=== PATIENT | male | born 1945 | race Caucasian/White ===

== ENCOUNTER → 2017-11-29 13:41 | Outpatient (CLI) | payer SELFPAY ==
--- NOTE | 2017-11-29 | DI.RAD.S_ITS ---
PROCEDURE: XR CHEST 2V INDICATIONS: COUGH,FEVER TECHNIQUE: 2 views of the chest were acquired. COMPARISON: None available. FINDINGS: Surgical changes and devices: There is a right internal jugular Port-A-Cath with the tip extending to the cavoatrial junction. Lungs and pleura: There are patchy bilateral air space opacities which appear to involve all lobes. There is a small left pleural effusion. No pneumothorax. Mediastinum: Mediastinal contours are normal. Heart size is enlarged. Bones and chest wall: No suspicious bony abnormalities. Soft tissues appear unremarkable. IMPRESSION: 1. Bilateral patchy airspace opacities suggestive of multifocal pneumonia given clinical history. Consider further evaluation with CT if clinically indicated. 2. Small left pleural effusion. Dictated by: Geovanni August M.D. on 11/29/2017 at 16:27 Approved by: Geovanni August M.D. on 11/29/2017 at 16:32
== END ==
PROVIDERS: Family Provider Internal Medicine; PCP Internal Medicine; Visit Provider Internal Medicine
DX: R05 Cough (principal); R50.9 Fever, unspecified; R91.8 Other nonspecific abnormal finding of lung field; J90 Pleural effusion, not elsewhere classified
CPT/HCPCS: 71046; 80048; 85025

== ENCOUNTER → 2017-11-29 16:38 | Outpatient (REF) | payer MEDICARE, OTHER, SELFPAY ==
[2017-11-29 16:48] LABS: Add Manual Diff / Slide Review NO; Basophils Percent Auto 0.2 % (0-2); Eosinophils Percent Auto 0.7 % (2-4); Hematocrit 30.9 % (41-53); Hemoglobin 10.1 g/dL (13.5-17.5); Lymphocytes Percent Auto 3.2 % (25-40); Mean Corpuscular HGB Conc 32.6 % (30-36); Mean Corpuscular Hemoglobin 26.2 PG (26-34); Mean Corpuscular Volume 80.3 fL (80-100); Monocytes Percent Auto 5.8 % (3-14); Neutrophils Absolute Auto 11100 /uL (3000-5900); Neutrophils Percent Auto 90.1 % (50-75); Platelet Count 286 X10^3/uL (150-400); Red Blood Cell Count 3.85 X10^6/uL (4.5-5.9); Red Cell Distribution Width 18.6 % (11.6-14.8); White Blood Cell Count 12.3 X10^3/uL (4.5-11.0)
[2017-11-29 16:49] LABS: BUN Creatinine Ratio 38.3 (6-22); Blood Urea Nitrogen 23 mg/dL (9-20); Calcium 8.9 mg/dL (8.4-10.2); Carbon Dioxide 25 mmol/L (22-32); Chloride 99 mmol/L (98-107); Estimated Glomerular Filt Rate > 60.0 mL/min (>60); Glucose 126 mg/dL (80-110); HEMOLYSIS < 15 (0-50); Potassium 3.9 mmol/L (3.4-5.1); Sodium 136 mmol/L (137-145)
== END ==
LOC: LAB 16:38
PROVIDERS: Family Provider Internal Medicine; PCP Internal Medicine; Visit Provider Internal Medicine
CPT/HCPCS: 80048; 85025

== ENCOUNTER → 2017-12-04 16:29 | Outpatient (REF) | payer MEDICARE, OTHER, SELFPAY ==
[2017-12-04 16:51] LABS: BUN Creatinine Ratio 25.7 (6-22); Blood Urea Nitrogen 18 mg/dL (9-20); Carbon Dioxide 30 mmol/L (22-32); Chloride 98 mmol/L (98-107); Estimated Glomerular Filt Rate > 60.0 mL/min (>60); Glucose 116 mg/dL (80-110); HEMOLYSIS < 15 (0-50); Potassium 3.8 mmol/L (3.4-5.1); Sodium 136 mmol/L (137-145)
[2017-12-04 17:51] LABS: Add Manual Diff / Slide Review NO; Basophils Percent Auto 0.3 % (0-2); Eosinophils Percent Auto 0.5 % (2-4); Hematocrit 29.8 % (41-53); Hemoglobin 9.7 g/dL (13.5-17.5); Lymphocytes Percent Auto 3.3 % (25-40); Mean Corpuscular HGB Conc 32.7 % (30-36); Mean Corpuscular Hemoglobin 26.1 PG (26-34); Mean Corpuscular Volume 79.9 fL (80-100); Monocytes Percent Auto 5.6 % (3-14); Neutrophils Absolute Auto 12400 /uL (3000-5900); Neutrophils Percent Auto 90.3 % (50-75); Platelet Count 236 X10^3/uL (150-400); Red Blood Cell Count 3.73 X10^6/uL (4.5-5.9); Red Cell Distribution Width 18.3 % (11.6-14.8); White Blood Cell Count 13.8 X10^3/uL (4.5-11.0)
== END ==
LOC: LAB 16:29
PROVIDERS: Family Provider Internal Medicine; PCP Internal Medicine; Visit Provider Internal Medicine
DX: R50.9 Fever, unspecified (principal); R05 Cough
CPT/HCPCS: 80048; 85025

== ENCOUNTER 2017-12-05 16:07 | Emergency (ER) | payer MEDICARE, OTHER, SELFPAY ==
[2017-12-05 16:12] VITALS: BP 107/61; PULSE 81; RESP 20; TEMP 36.9; O2SAT 94
--- NOTE | 2017-12-05 16:16 | DI.RAD.S_ITS ---
PROCEDURE: XR CHEST 1V INDICATIONS: fatigue, hypoxia TECHNIQUE: One view of the chest was acquired. COMPARISON: [facility], CR, XR CHEST 2V, 11/29/2017, 13:38. FINDINGS: Surgical changes and devices: Right Port-A-Cath is unchanged. Lungs and pleura: There is improved aeration of the lungs when compared with the study dated 11/29/17; however diffuse bilateral pulmonary opacities persist. Mediastinum: Mediastinal contours appear normal. Heart size is normal. Bones and chest wall: No suspicious bony lesions. Overlying soft tissues appear unremarkable. IMPRESSION: Partially improved aeration of the bilateral lungs when compared with the prior study dated 11/29/17. Dictated by: Gloria Vivar M.D. on 12/05/2017 at 17:01 Approved by: Gloria Vivar M.D. on 12/05/2017 at 17:02
[2017-12-05 17:03] VITALS: BP 107/63; PULSE 80; RESP 15; O2SAT 92
--- NOTE | 2017-12-05 17:19 | DI.CT.S_ITS ---
PROCEDURE: CT ANGIO CHEST PE PROTOCOL INDICATIONS: sob w/ active CA - PE? PNA? TECHNIQUE: After the administration of intravenous contrast, 2 mm thick sections acquired from the pulmonary apices to the posterior costophrenic angles. 3-dimensional maximum intensity projection (MIP) coronal and sagittal reformats were then acquired through the thorax. For radiation dose reduction, the following was used: automated exposure control, adjustment of mA and/or kV according to patient size. COMPARISON: [facility], CR, XR CHEST 1V, 12/05/2017, 16:29. FINDINGS: Image quality: Excellent. Pulmonary arteries: Segmental and subsegmental filling defects are present bilaterally within the lower lobes and the right middle lobe. Lungs and pleura: Geographic, groundglass pulmonary opacities and interlobular septal thickening are present throughout both lungs. Tree in bud pulmonary radiopacities are also present within the lower lobes bilaterally. A 9 mm diameter spiculated nodule is present within the left lower lobe (series 5, image 27). A 5 mm pulmonary nodule is present more inferiorly within the left lower lobe (series 5, image 36). A 12 mm nodule is present at the right lung base (series 5, image 40). Mediastinum: Heart size is normal, without pericardial effusion. No leftward septal bowing to suggest right heart strain. No mediastinal or hilar adenopathy. Thoracic aorta is normal in caliber and enhancement. There is likely an esophageal pull-through. This has an ectatic appearance and is filled with debris. Bones and chest wall: No suspicious bony lesions. Ribs and thoracic spine appear intact throughout. Thyroid gland is unremarkable. No axillary or supraclavicular adenopathy. Abdomen: There is a 5.4 x 3.6 cm enhancing right adrenal gland mass. There is a 1.4 cm diameter left adrenal gland mass. Visualized upper abdominal solid organs appear otherwise normal in the early arterial phase of enhancement. IMPRESSION: 1. Nonocclusive segmental and subsegmental pulmonary emboli as above. No findings to suggest right heart strain. 2. Geographic groundglass opacities suspicious for infection, likely secondary to aspiration given the markedly dilated, debris-filled lucio-esophagus. 3. Bilateral basilar tree in bud radiopacities suggesting endobronchial spread of infection. 4. Multiple spiculated pulmonary nodules suspicious for pulmonary metastasis. 5. 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 These findings were discussed with Dr. Valle at 6:06 PM on 12/05/17. Dictated by: Gloria Vivar M.D. on 12/05/2017 at 17:58 Approved by: Gloria Vivar M.D. on 12/05/2017 at 18:07
[2017-12-05 17:30] LABS: Add Manual Diff / Slide Review NO; Basophils Percent Auto 0.2 % (0-2); Eosinophils Percent Auto 0.7 % (2-4); Hematocrit 30.6 % (41-53); Lymphocytes Percent Auto 2.7 % (25-40); Mean Corpuscular HGB Conc 32.7 % (30-36); Mean Corpuscular Hemoglobin 25.9 PG (26-34); Mean Corpuscular Volume 79.4 fL (80-100); Monocytes Percent Auto 4.5 % (3-14); Neutrophils Absolute Auto 10800 /uL (3000-5900); Neutrophils Percent Auto 91.9 % (50-75); Platelet Count 246 X10^3/uL (150-400); Red Blood Cell Count 3.86 X10^6/uL (4.5-5.9); Red Cell Distribution Width 18.6 % (11.6-14.8); White Blood Cell Count 11.7 X10^3/uL (4.5-11.0)
[2017-12-05 17:36] LABS: Alanine Aminotransferase 33 IU/L (21-72); Albumin Globulin Ratio 0.7 (1.0-2.8); Alkaline Phosphatase 121 U/L (38-126); Aspartate Aminotransferase 30 IU/L (17-59); BUN Creatinine Ratio 31.7 (6-22); Bilirubin Total 0.7 mg/dL (0.2-1.3); Blood Urea Nitrogen 19 mg/dL (9-20); Calcium 9.1 mg/dL (8.4-10.2); Carbon Dioxide 29 mmol/L (22-32); Chloride 96 mmol/L (98-107); Estimated Glomerular Filt Rate > 60.0 mL/min (>60); Globulin 4.4 g/dL (1.7-4.1); Glucose 150 mg/dL (80-110); HEMOLYSIS < 15 (0-50); Lipase 33 U/L (23-300); Potassium 4.3 mmol/L (3.4-5.1); Sodium 135 mmol/L (137-145); Total Protein 7.4 g/dL (6.3-8.2)
--- NOTE | 2017-12-05 17:47 | ED.SOB ---
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 Patient denies fevers, chills, chest pain. Patient is nearing palliative care, DNR, but wishes to receive treatment and appraisal current condition the intention for discharge from the emergency department as the patient would rather be at home. M/S/F/SocHx notable for: please see HPI; remainder reviewed with patient and in chart. ROS: Negative constitutional, eye, cardiovascular, pulmonary, GI, , MSK, skin, neurologic, psychiatric, endocrine unless noted in the HPI. Exam Gen: Pleasant, resting in minimal discomfort, not in extremis, chronically unwell appearing. HEENT: NC, AT, PEERL, EOMI. Resp: mildly diminished breath sounds bilaterally, normal work of breathing, no accessory muscle usage. Card: Regular rate and rhythm with no murmurs, rubs, or gallops, extremities warm and well perfused. GI: Non-tender to palpation throughout all quadrants, no focal tenderness at McBurney's point, negative Alford's sign, non-distended, no rebound or guarding. : No suprapubic tenderness to palpation. MSK: No visible deformities, strength and tone without visually appreciable deficit. Skin: Normal color with no visible lesions. Neuro: AO x 3, no facial asymmetry, vision and hearing WNL. Psych: Mood and affect appropriate. Labs / Imaging: WBC 11.7, hemoglobin 10.0, sodium 135, potassium 4.3, troponin pending, BNP pending, Procalcitonin pending, TSH pending, free T4 pending. CXR: partially improved duration of the bilateral lungs when compared with prior study dated 11/29/17. CTA chest: pending. MDM Previous chart, nursing note, labs, imaging, and vitals reviewed. 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 DDx: weakness secondary to progress of malignancy, ACS, pericardial effusion, pleural effusion, PE, pneumonia, chemical pneumonitis, dehydration, CHF, electrolyte abnormalities. Evaluation: patient unwell but not in extremis and oxygenating adequately with a normal work of breathing on room air. CBC and BMP without grossly significant abnormalities. At the time of patient care transfer to the overnight provider the patient's BNP, troponin, Procalcitonin, thyroid studies, and CTA are pending. As the patient is high risk for PE a CTA chest was ordered, should the patient have a pulmonary embolism there will be significant clinical tension between anticoagulation in the risk of bleeding from his cerebral mets. As the patient's physical exam and chest imaging are without evidence of heart failure, the patient was given one liter normal saline for hydration. Impression: weakness (please reference below for remainder of encounter information) Related Data Home Medications Medication Instructions Recorded Confirmed omeprazole 20 mg PO QDAY #0 05/20/16 Previous Rx's Medication Instructions Recorded escitalopram oxalate [Lexapro] 20 mg PO SEE INSTRUCTIONS #135 tab 06/12/16 Exam Initial Vital Signs Initial Vital Signs: Vital Signs Temperature 98.4 F 12/05/17 16:12 Pulse Rate 81 12/05/17 16:12 Respiratory Rate 20 12/05/17 16:12 Blood Pressure 107/61 12/05/17 16:12 Pulse Oximetry 94 12/05/17 16:12 Course Orders Ordered: ED Orders 12/05/17 16:16 Chest [XR chest 1V] Stat 12/05/17 16:20 B Type Natriuretic Peptide Stat Complete Blood Count AUTO DIFF Stat Comprehensive Metabolic Panel Stat Free T4 Free Thyroxine Stat Lipase Stat Magnesium Stat Procalcitonin Stat Thyroid Stimulating Hormone Stat Troponin I Stat 12/05/17 17:19 CT angio chest PE protocol Stat 12/05/17 17:35 Lactate (Lactic Acid) Stat Sodium Chloride (Normal Saline 0.9%) 1,000 mls @ 1,000 mls/hr IV BOLUS ONE Stop: 12/05/17 18:44 Vital Signs - 8 hr 12/05/17 16:12 12/05/17 17:03 Temperature 98.4 F Pulse Rate 81 80 Respiratory Rate 20 15 Blood Pressure 107/61 Blood Pressure [Left Arm] 107/63 Pulse Oximetry 94 92 MDM - SOB/Dyspnea Lab Data Result diagrams: 12/05/17 16:20 12/05/17 16:20 Lab Results 12/05/17 12/05/17 Range/Units 16:20 16:20 WBC 11.7 H (4.5-11.0) X10^3/uL RBC 3.86 L (4.5-5.9) X10^6/uL Hgb 10.0 L (13.5-17.5) g/dL Hct 30.6 L (41-53) % MCV 79.4 L (80-100) fL MCH 25.9 L (26-34) PG MCHC 32.7 (30-36) % RDW 18.6 H (11.6-14.8) % Plt Count 246 (150-400) X10^3/uL Neut % (Auto) 91.9 H (50-75) % Lymph % (Auto) 2.7 L (25-40) % [place] % (Auto) 4.5 (3-14) % Eos % (Auto) 0.7 L (2-4) % Baso % (Auto) 0.2 (0-2) % Neut # (Auto) 09896 H (1900-4039) /uL Sodium 135 L (137-145) mmol/L Potassium 4.3 (3.4-5.1) mmol/L Chloride 96 L (98-107) mmol/L Carbon Dioxide 29 (22-32) mmol/L BUN 19 (9-20) mg/dL Creatinine 0.60 L (0.66-1.25) mg/dL Estimated GFR > 60.0 (>60) mL/min BUN/Creatinine Ratio 31.7 H (6-22) Glucose 150 H (80-110) mg/dL Calcium 9.1 (8.4-10.2) mg/dL Magnesium 2.0 (1.6-2.3) mg/dL Total Bilirubin 0.7 (0.2-1.3) mg/dL AST 30 (17-59) IU/L ALT 33 (21-72) IU/L Alkaline Phosphatase 121 (38-126) U/L Total Protein 7.4 (6.3-8.2) g/dL Albumin 3.0 L (3.5-5.0) g/dL Globulin 4.4 H (1.7-4.1) g/dL Albumin/Globulin Ratio 0.7 L (1.0-2.8) Lipase 33 (23-300) U/L Discharge Plan Departure Prescriptions: No Action omeprazole 20 MG capsule,delayed release(DR/EC) 20 mg PO QDAY Qty: 0 RF: 0 escitalopram oxalate [Lexapro] 20 MG tablet 20 mg PO SEE INSTRUCTIONS Qty: 135 RF: 1
[2017-12-05 17:49] LABS: Troponin I < 0.012 ng/mL (0.01-0.034)
[2017-12-05 18:11] LABS: Free T4, Direct Thyroxine 1.04 ng/dL (0.78-2.19)
[2017-12-05 18:25] LABS: Thyroid Stimulating Hormone 4.91 uIU/mL (0.47-4.68)
[2017-12-05 18:56] VITALS: BP 96/61; PULSE 84; RESP 21; O2SAT 97
[2017-12-05 19:47] VITALS: O2SAT 95
--- NOTE | 2017-12-05 20:00 | PC.NURSE ---
report given to Sabra at [facility].
== END 2017-12-05 20:08 | disposition home or self-care (01) ==
PROVIDERS: Emergency Provider Emergency Medicine; Family Provider Internal Medicine; PCP Internal Medicine
DX: C15.9 Malignant neoplasm of esophagus, unspecified (principal); C78.00 Secondary malignant neoplasm of unspecified lung; C79.31 Secondary malignant neoplasm of brain; E86.0 Dehydration; J18.9 Pneumonia, unspecified organism
CPT/HCPCS: 36415; 36591; 71045; 71275; 80053; 83605; 83690; 83735; 83880; 84145; 84439; 84443; 84484; 85025; 93005; 93041; 99283; 99285; 99291; Q9967

== ENCOUNTER → 2017-12-08 07:58 | Outpatient (REF) | payer SELFPAY ==
[2017-12-08 08:54] LABS: INR 1.2 (0.9-1.3); Prothrombin Time 13.2 SECONDS (10.1-12.7)
== END ==
LOC: LAB 07:58
PROVIDERS: Family Provider Internal Medicine; PCP Internal Medicine; Visit Provider Internal Medicine
DX: Z92.29 Personal history of other drug therapy (principal)
CPT/HCPCS: 36415; 85610

== ENCOUNTER → 2017-12-08 07:58 | Outpatient (REF) | payer MEDICARE, SELFPAY | LOC: LAB 07:58 | PROVIDERS: Family Provider Internal Medicine; PCP Internal Medicine; Visit Provider Internal Medicine | DX: Z53.9 Procedure and treatment not carried out, unspecified reason (principal) ==

== ENCOUNTER → 2017-12-10 07:05 | Outpatient (REF) | payer SELFPAY | LOC: LAB 07:05 | PROVIDERS: Family Provider Internal Medicine; PCP Internal Medicine; Visit Provider Internal Medicine | DX: Z00.00 Encounter for general adult medical examination without abnormal findings (principal); Z79.899 Other long term (current) drug therapy | CPT/HCPCS: 36415; 85610 ==

== ENCOUNTER → 2017-12-13 07:35 | Outpatient (REF) | payer SELFPAY ==
[2017-12-13 08:28] LABS: INR 3.1 (0.9-1.3); Prothrombin Time 33.3 SECONDS (10.1-12.7)
== END ==
LOC: LAB 07:35
PROVIDERS: Family Provider Internal Medicine; PCP Internal Medicine; Visit Provider Internal Medicine
DX: I48.91 Unspecified atrial fibrillation (principal)
CPT/HCPCS: 36415; 85610

== ENCOUNTER → 2017-12-22 08:46 | Outpatient (REF) | payer SELFPAY ==
[2017-12-22 09:12] LABS: Add Manual Diff / Slide Review NO; Eosinophils Percent Auto 0.1 % (2-4); Hematocrit 33.6 % (41-53); Hemoglobin 10.8 g/dL (13.5-17.5); Lymphocytes Percent Auto 5.9 % (25-40); Mean Corpuscular HGB Conc 32.2 % (30-36); Mean Corpuscular Hemoglobin 25.9 PG (26-34); Mean Corpuscular Volume 80.5 fL (80-100); Monocytes Percent Auto 4.6 % (3-14); Neutrophils Absolute Auto 6800 /uL (3000-5900); Neutrophils Percent Auto 89.4 % (50-75); Platelet Count 256 X10^3/uL (150-400); Red Blood Cell Count 4.17 X10^6/uL (4.5-5.9); Red Cell Distribution Width 20.2 % (11.6-14.8); White Blood Cell Count 7.6 X10^3/uL (4.5-11.0)
[2017-12-22 09:13] LABS: Alanine Aminotransferase 43 IU/L (21-72); Albumin 2.6 g/dL (3.5-5.0); Albumin Globulin Ratio 0.8 (1.0-2.8); Alkaline Phosphatase 71 U/L (38-126); Aspartate Aminotransferase 15 IU/L (17-59); BUN Creatinine Ratio 36.7 (6-22); Bilirubin Total 0.6 mg/dL (0.2-1.3); Blood Urea Nitrogen 22 mg/dL (9-20); Calcium 9.4 mg/dL (8.4-10.2); Carbon Dioxide 31 mmol/L (22-32); Chloride 98 mmol/L (98-107); Estimated Glomerular Filt Rate > 60.0 mL/min (>60); Globulin 3.2 g/dL (1.7-4.1); Glucose 104 mg/dL (80-110); HEMOLYSIS < 15 (0-50); Potassium 4.5 mmol/L (3.4-5.1); Sodium 136 mmol/L (137-145); Total Protein 5.8 g/dL (6.3-8.2)
[2017-12-22 09:45] LABS: Thyroid Stimulating Hormone 4.54 uIU/mL (0.47-4.68)
[2017-12-22 09:51] LABS: Basophilic Stippling 1+; Platelet Morphology Comment FEW LARGE PLTS
[2017-12-22 09:52] LABS: Anisocytosis 1+; Poikilocytosis 1+
[2017-12-22 10:02] LABS: Vitamin B12 546 pg/mL (239-931)
== END ==
LOC: LAB 08:46
PROVIDERS: Family Provider Internal Medicine; PCP Internal Medicine; Visit Provider Internal Medicine
DX: C79.9 Secondary malignant neoplasm of unspecified site (principal)
CPT/HCPCS: 36415; 80053; 82607; 84443; 85025